=== PATIENT | female | born 1980 | race African-American/Black ===

== ENCOUNTER 2018-07-10 12:38 | Emergency (ER) | payer MEDICAID, OTHER ==
[~2018-07-10] VITALS: Ht 170.2 cm; Wt 93.1 kg
[2018-07-10] MEDS ORDERED: KETOROLAC 60MG/2ML VIAL IM ONE (16:00)
[2018-07-10] MEDS ORDERED: HYDROCODONE/ACETAMINOPHEN 5/325MG TABLET PO ONE (17:15)
[2018-07-10 17:27] VITALS: BP 159/99
== END 2018-07-10 17:28 | disposition home or self-care (01) ==
LOC: ER 16:05
DX: S76.911A Strain of unspecified muscles, fascia and tendons at thigh level, right thigh, initial encounter (principal); W18.30XA Fall on same level, unspecified, initial encounter; Y93.89 Activity, other specified; Y92.89 Other specified places as the place of occurrence of the external cause; Y99.8 Other external cause status
CPT/HCPCS: 81025; 96372; 99283; J1885